=== PATIENT | male | born 1965 | race Caucasian/White ===

== ENCOUNTER 2019-12-30 07:28 | Emergency (ER) | payer OTHER, SELFPAY ==
[2019-12-30 07:34] VITALS: BP 130/78; PULSE 82; RESP 16; TEMP 36.1; O2SAT 98; BMI 30.4
--- NOTE | 2019-12-30 08:14 | ED.GENADULT ---
HPI - General Adult General Chief complaint: General Medical Stated complaint: RASH Time Seen by Provider: 12/30/19 07:58 Source: patient Mode of arrival: ambulatory Limitations: no limitations History of Present Illness HPI narrative: patient comes to emergency room complaining of genital rash. Patient states he has had itching and irritation for the last 3 weeks, he notice the vesicles approximately a week ago. Patient states that the vesicles continue to spread in the suprapubic region and over the penis. Patient denies penile discharge. No fever. No dysuria. Related Data Previous Rx's Medication Instructions Recorded acyclovir 400 mg PO TID #10 tab 12/30/19 Allergies Allergy/AdvReac Type Severity Reaction Status Date / Time No Known Allergies Allergy Verified 12/30/19 07:36 Review of Systems Review of Systems: Constitutional : No Weight loss, No Fever, No Chills, No Night Sweats, No Fatigue, No Malaise ENT/Mouth : No Hearing loss, No Ear Pain, No Nasal Congestion, No Sinus Pain, No Hoarseness, No sore throat, No Rhinorrhea, No Swallowing Difficulty Eyes: No Eye Pain, No Swelling, No Redness, No Foreign Body, No Discharge, No Vision Changes Cardiovascular : No Chest Pain, No SOB, No Dyspnea on Exertion, No Orthopnea, No Edema, No Palpitations Respiratory : No Cough, No Sputum, No Wheezing, No Smoke Exposure, No Dyspnea Gastrointestinal : No Nausea, No Vomiting, No Diarrhea, No Constipation, No abdominal Pain, No Hematochezia, No Melena Genitourinary : no irregular bleeding, No Dysuria, No Urinary Frequency, No Hematuria, No Urinary Incontinence, No Urgency, No Flank Pain, No Urinary Flow Changes, No Hesitancy Musculoskeletal : No joint pain, No Myalgias, No Joint Swelling Skin : Irritation, vesicular rash to suprapubic area and penis Neuro : No Weakness, No Numbness, No Paresthesias, No Loss of Consciousness, No Dizziness, No Headache Psych : No Anxiety/Panic, No Depression, No SI/HI/AH/VH, No Social Issues, Heme/Lymph: No Bruising, No Bleeding,No Lymphadenopathy Endocrine : No Polyuria, No Polydipsia, No Temperature Intolerance PMFSH Past Medical History Medical History No known health problems Social History Social History Advance Directives: No Advance Directives Information Provided: No Physical Exam Vital Signs: Vital Signs: Vital Signs Temp Pulse Resp BP Pulse Ox 12/30/19 07:34 97.0 F 82 16 130/78 98 Body Mass Index 30.4 Appearance: Alert. Oriented X3. No acute distress. Eyes: Pupils equal, round and reactive to light. ENT: Pharynx normal. Neck: Normal inspection. Neck supple. No lymph nodes noted. No crepitus CVS: Normal heart rate and rhythm. Pulses normal. Normal S1 and S2 Respiratory: No respiratory distress. Breath sounds normal. No Wheezing. No rales Abdomen: Soft and nontender. No rigidity. No distention. good BS x4 Skin: Skin warm and dry. vesicular rash to suprapubic area and penis Extremities: No lower extremity edema. No lower extremity edema. No Lacerations. No Rash Neuro: Oriented X 3. No motor deficit. No sensory deficit. Moving all extermities. No slurred speech. Course Course Course Narrative: I discussed with the patient that his physical exam is consistent with herpes. Instructed to inform his sexual partners. Discharge Plan Discharge Clinical Impression: Genital herpes in men Patient Disposition: Home, Self-Care Instructions: Genital Herpes Simplex (ED) Additional Instructions: Please follow-up with your primary care physician tomorrow. If you have any worsening or new symptoms, please return to the emergency room or call 911 Prescriptions: New acyclovir 400 mg tablet 400 mg PO TID Qty: 10 RF: 0
== END 2019-12-30 08:23 | disposition home or self-care (01) ==
PROVIDERS: Emergency Provider Emergency Medicine
DX: A60.01 Herpesviral infection of penis (principal)
CPT/HCPCS: 99282; 99283

== ENCOUNTER 2020-02-12 07:18 | Emergency (ER) | payer OTHER, SELFPAY ==
--- NOTE | 2020-02-12 07:40 | ED_ITS ---
HPI - Skin/Abscess/Foreign Bdy General Chief complaint: General Medical Stated complaint: rash on face Time Seen by Provider: 02/12/20 07:39 Source: patient Mode of arrival: ambulatory Limitations: no limitations History of Present Illness MD complaint: rash Onset (ago): week(s) (1) Location: face (bilateral nasolabial folds, upper eye lids bilaterally) Severity: mild Quality: pruritic Relieving factors: none Exacerbating factors: none Context: none Associated symptoms: denies other symptoms Treatments prior to arrival: OTC topical medication (bacitracin) Related Data Previous Rx's Medication Instructions Recorded acyclovir 400 mg PO TID #10 tab 12/30/19 mupirocin 1 appl TOPICAL BID 7 Days #15 g 02/12/20 prednisone 40 mg PO DAILY 5 Days #10 tab 02/12/20 Allergies Allergy/AdvReac Type Severity Reaction Status Date / Time No Known Allergies Allergy Verified 12/30/19 07:36 Review of Systems Review of Systems: Constitutional : No Fever, No Chills ENT/Mouth : No sore throat, No Rhinorrhea Eyes: No Eye Pain, No Swelling, No Redness Cardiovascular : No Chest Pain, No SOB Respiratory : No Cough, No Sputum Gastrointestinal : No Nausea, No Vomiting, No Diarrhea, No abdominal Pain Genitourinary : No Dysuria, No Hematuria Musculoskeletal : No joint pain, No Myalgias, No Joint Swelling Skin : No Skin Lesions, positive skin rash PMFSH Past Medical History Attestation statement: The following information was validated with the patient. Medical History No known health problems Social History Social History (Updated 02/12/20 @ 07:40 by Luz Maria Evans DO) Smoking Status: Never smoker Advance Directives: No Advance Directives Information Provided: Yes Physical Exam Vital Signs: Appearance: Alert. Oriented X3. No acute distress. Eyes: Pupils equal, round and reactive to light. ENT: Pharynx normal. Neck: Normal inspection. Neck supple. CVS: Normal heart rate and rhythm. Pulses normal. Respiratory: No respiratory distress. Breath sounds normal. Abdomen: Soft and nontender. Skin: Skin warm and dry. Normal skin color. Normal skin turgor. on bilateral nasolabial folds faintly erythematous shiny skin same patches noted on upper eye lids, no sweling, no elevation, pruritic per patient Extremities: No lower extremity edema. No calf ttp Neuro: Oriented X 3. No motor deficit. No sensory deficit. MDM - Skin/Abscess/Foreign Bdy MDM Narrative Medical decision making narrative: 54 yo male with rash on face x 1 week exam and history consistent with a contact dermatitis - it is pruritic in nature, does not know exposure at this time will need oral steroids and mupirocin no signs of cellulitis, no vesicles Discharge Plan Discharge Clinical Impression: Contact dermatitis Qualifiers: Contact dermatitis type: unspecified Contact dermatitis trigger: unspecified trigger Qualified Code(s): L25.9 - Unspecified contact dermatitis, unspecified cause Patient Disposition: Home, Self-Care Instructions: Contact Dermatitis (ED) Additional Instructions: return to ED for any worsening symptoms or concerns Prescriptions: New prednisone 20 mg tablet 40 mg PO DAILY 5 Days Qty: 10 RF: 0 mupirocin 2 % ointment 1 appl topical BID 7 Days Qty: 15 RF: 0 No Action acyclovir 400 mg tablet 400 mg PO TID Qty: 10 RF: 0 Referrals: [facility] [Primary Care Provider] - 2 days (if not better)
[2020-02-12 07:48] VITALS: BP 120/77; PULSE 91; RESP 16; TEMP 36.8; O2SAT 96; BMI 29.2
== END 2020-02-12 07:56 | disposition home or self-care (01) ==
PROVIDERS: Emergency Provider Emergency Medicine
DX: L25.9 Unspecified contact dermatitis, unspecified cause (principal)
CPT/HCPCS: 99283

== ENCOUNTER 2020-02-21 07:27 | Emergency (ER) | payer OTHER, SELFPAY ==
[2020-02-21 07:35] VITALS: BP 126/76; PULSE 90; RESP 18; TEMP 36.1; O2SAT 98; BMI 25.0
--- NOTE | 2020-02-21 07:55 | ED_ITS ---
HPI - Skin/Abscess/Foreign Bdy General Chief complaint: Skin/Abscess/Foreign Body Stated complaint: FACIAL SWELLING Time Seen by Provider: 02/21/20 07:55 Source: patient and old records reviewed Mode of arrival: ambulatory Limitations: no limitations History of Present Illness complaint: rash Onset (ago): week(s) (3+) Tetanus up to date: yes Location: face Severity: moderate Quality: burning Pain Consistency: constant Relieving factors: none Exacerbating factors: none Context: none Associated symptoms: denies other symptoms Treatments prior to arrival: other (was on mupirocin and prednisone without relief on 02/11) Related Data Previous Rx's Medication Instructions Recorded acyclovir 400 mg PO TID #10 tab 12/30/19 mupirocin 1 appl TOPICAL BID 7 Days #15 g 02/12/20 prednisone 40 mg PO DAILY 5 Days #10 tab 02/12/20 acyclovir 400 mg PO TID 10 Days #30 tab 02/21/20 cephalexin 500 mg PO TID 7 Days #21 cap 02/21/20 Allergies Allergy/AdvReac Type Severity Reaction Status Date / Time No Known Allergies Allergy Verified 12/30/19 07:36 Review of Systems Review of Systems: Constitutional : No Fever, No Chills ENT/Mouth : No sore throat, No Rhinorrhea Eyes: No Eye Pain, No Swelling, No Redness Cardiovascular : No Chest Pain, No SOB Respiratory : No Cough, No Sputum Gastrointestinal : No Nausea, No Vomiting, No Diarrhea, No abdominal Pain Genitourinary : No Dysuria, No Hematuria Musculoskeletal : No joint pain, No Myalgias, No Joint Swelling Skin : pos Skin Lesions, positive skin rash Neuro : No Weakness, No Numbness, No Headache Psych : No Anxiety, No Depression Heme/Lymph: No Bruising, No Bleeding,No Lymphadenopathy Endocrine : No Polyuria, No Polydipsia All other systems reviewed and are negative [facility] Past Medical History Attestation statement: The following information was validated with the patient. Medical History No known health problems Social History Social History Smoking Status: Never smoker Advance Directives: No Advance Directives Information Provided: Yes Physical Exam Vital Signs: Vital Signs: Last Vital Signs Temp 97.0 F 02/21/20 07:35 Pulse 90 02/21/20 07:35 Resp 18 02/21/20 07:35 BP 126/76 02/21/20 07:35 Pulse Ox 98 02/21/20 07:35 Body Mass Index 25.0 Appearance: Alert. Oriented X3. No acute distress. Eyes: Pupils equal, round and reactive to light. ENT: Pharynx normal. orolabial area there is erythema/scaling/no abscess but tiny vesicles very scattered noted Neck: Normal inspection. Neck supple. CVS: Normal heart rate and rhythm. Pulses normal. Respiratory: No respiratory distress. Breath sounds normal. Abdomen: Soft and nontender. Skin: Skin warm and dry. Normal skin color. Normal skin turgor. Extremities: No lower extremity edema. No calf ttp Neuro: Oriented X 3. No motor deficit. No sensory deficit. MDM - Skin/Abscess/Foreign Bdy MDM Narrative Medical decision making narrative: 54 yo male with orolabial red area with some vesicles mild cellulitis no systemic symptoms will start on cephalexin and acyclovir no nose involvement will refer to his PCP and certified neurodiagnostic technologist Discharge Plan Discharge Clinical Impression: Cellulitis Qualifiers: Site of cellulitis: face Qualified Code(s): L03.211 - Cellulitis of face Patient Disposition: Home, Self-Care Instructions: Cellulitis (ED) Additional Instructions: return to ED for any worsening symptoms or concerns you need to see your doctor and a certified neurodiagnostic technologist Prescriptions: New acyclovir 400 mg tablet 400 mg PO TID 10 Days Qty: 30 RF: 0 cephalexin 500 mg capsule 500 mg PO TID 7 Days Qty: 21 RF: 0 No Action acyclovir 400 mg tablet 400 mg PO TID Qty: 10 RF: 0 prednisone 20 mg tablet 40 mg PO DAILY 5 Days Qty: 10 RF: 0 mupirocin 2 % ointment 1 appl topical BID 7 Days Qty: 15 RF: 0 Referrals: Physician,Unknown [Primary Care Provider] - 2 days (call Sunday) Discharge Date/Time: 02/21/20 08:03
== END 2020-02-21 08:03 | disposition home or self-care (01) ==
PROVIDERS: Emergency Provider Emergency Medicine
DX: L03.211 Cellulitis of face (principal); Z79.899 Other long term (current) drug therapy
CPT/HCPCS: 99283

== ENCOUNTER → 2020-03-16 13:39 | Outpatient (BNVA) | payer OTHER, SELFPAY | PROVIDERS: PCP Nurse Practitioner Primary Care; Visit Provider Nurse Practitioner Family | DX: Z76.89 Persons encountering health services in other specified circumstances (principal) ==

== ENCOUNTER → 2020-05-27 13:37 | Outpatient (BNVA) | payer OTHER, SELFPAY | PROVIDERS: PCP Nurse Practitioner Primary Care; Visit Provider Nurse Practitioner Family | DX: Z13.89 Encounter for screening for other disorder (principal) | CPT/HCPCS: Q3014 ==

== ENCOUNTER 2022-04-24 22:18 | Emergency (ER) | payer OTHER, SELFPAY ==
--- NOTE | 2022-04-24 23:11 | ED.GENADULT ---
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 Patient attempt to put external nasal pressure and by the time I saw the patient in the room the bleeding was stopped. Patient declined headache, blurry vision, dizziness. Related Data Home Medications Medication Instructions Recorded Confirmed quetiapine 50 mg tablet (Seroquel) 50 mg PO BID 05/27/20 06/28/20 zolpidem 10 mg tablet (Ambien) 10 mg PO BEDTIME PRN Sleep 05/27/20 06/28/20 Previous Rx's Medication Instructions Recorded mupirocin 2 % topical ointment 1 appl topical BID 7 days #15 grams 02/12/20 acyclovir 400 mg tablet 400 mg PO TID 10 days #30 tabs 02/21/20 methylcellulose (laxative) 500 mg 500 mg PO DAILY #30 tabs 05/27/20 tablet (Citrucel) polyethylene glycol 3350 17 238 g PO ONCE #238 grams 05/27/20 gram/dose oral powder (Miralax) Allergies Allergy/AdvReac Type Severity Reaction Status Date / Time No Known Allergies Allergy Verified 06/28/20 11:27 Review of Systems Review of Systems: All other systems are reviewed and are negative Constitutional: Reports as per HPI and Reports no additional constitutional complaints Eyes: Reports as per HPI and Reports no additional eye complaints Reports system reviewed and no additional complaints, except as documented Cardiovascular: Reports as per HPI and Reports no additional cardiovascular complaints Respiratory: Reports as per HPI and Reports no additional respiratory complaints Gastrointestinal: Reports as per HPI and Reports no additional gastrointestinal complaints Genitourinary: Reports no additional female genitourinary complaints Musculoskeletal: Reports no additional musculoskeletal complaints Skin/Breast: Reports system reviewed and no additional complaints, except as docu Psychiatric: Reports no additional psychiatric complaints Endocrine: Reports no additional endocrine complaints Hematologic/Lymphatic: Reports no additional hematologic/lymphatic complaints Allergic/Immunologic: Reports no additional allergic/immunologic complaints Reports system reviewed and no additional complaints, except as documented and Reports Abnormal speech present [facility] Past Medical History Medical History Anxiety Depression Elevated cholesterol Headache Lymphoma Surgical History Hx of lymph node biopsy Family History Family History Mother Cancer Social History Social History Household Members: None Alcohol intake: current Alcohol intake frequency: does not drink Current occupational status: disabled Physical Exam ED Vital Signs: Vital signs have been reviewed as appeared to be correct. Blood pressure normal. Heart rate normal. Respiration rate normal. Temperature normal. Oxygen saturation normal. Appearance: Alert. Oriented X3. No acute distress. Head: Normal external exam. Normocephalic. Atraumatic. No North signs noted. No raccoon eyes noted Eyes: PERRLA. EOMI. Conjunctiva and sclera normal. Eyelids normal. ENT: TM's Normal. Pharynx normal. Uvula midline. Moist mucous membranes. No trismus noted. No drooling noted. No muffled voice noted. No active nose bleeding. Neck: Normal inspection. Neck supple. FROM. No adenopathy. Thyroid Normal. No meningeal signs. No neck mass noted. CVS: Normal heart rate and rhythm. Heart sound normal. No murmurs noted. Pulses normal throughout. Respiratory: No respiratory distress. Painless inspiration. Breath sounds normal. No wheezes/rales/rhonchi noted. Chest nontender. No accessory muscle usage noted or decreased air movement noted. Abdomen: Soft and nontender. Bowel sounds normal in all 4 quadrants. No distention noted. No organomegaly noted. No visible injury noted. Back: No CVA tenderness. Full range of motion noted. Skin: Skin warm and dry. Normal skin color. Normal skin turgor. No rashes/lesions/lacerations noted. Extremities: No lower extremity edema. Extremities exhibit normal range of motion. Extremities nontender. Neuro: Oriented X 3. Cranial nerve exam: II-XII are grossly intact No motor deficit. No sensory deficit. Reflexes normal. Course Course Course Narrative: Left nostril epistaxis that spontaneously stopped by applying external pressure on the nostril. Medical Decision Making Differential Diagnosis Differential Diagnoses: The differential diagnosis associated with the presentation includes (Epistaxis, coagulopathy, patent airway.) Discharge Plan Discharge Clinical Impression: Epistaxis Patient Disposition: Home, Self-Care Instructions: Nosebleed (ED) Prescriptions: No Action acyclovir 400 mg tablet 400 mg PO TID 10 Days Qty: 30 0RF mupirocin 2 % ointment 1 appl topical BID 7 Days Qty: 15 0RF quetiapine [Seroquel] 50 mg tablet 50 mg PO BID zolpidem [Ambien] 10 mg tablet 10 mg PO BEDTIME PRN (Reason: Sleep) polyethylene glycol 3350 [Miralax] 17 gram/dose powder 238 g PO ONCE Qty: 238 0RF Rx Instructions: As directed by gastroenterology department at [facility] Citrucel 500 mg tablet 500 mg PO DAILY Qty: 30 2RF
[2022-04-24 23:15] VITALS: BP 130/82; PULSE 97; RESP 14; TEMP 37; O2SAT 96; BMI 27.4
== END 2022-04-24 23:39 | disposition home or self-care (01) ==
LOC: HO.ED 23:29
PROVIDERS: Emergency Provider Emergency Medicine
DX: R04.0 Epistaxis (principal); Z79.899 Other long term (current) drug therapy
CPT/HCPCS: 99283

== ENCOUNTER 2023-11-14 09:18 | Outpatient (REF) | payer OTHER, SELFPAY ==
[2023-11-14 11:28] LABS: MANUAL DIFF FLAG NO
[2023-11-14 11:39] LABS: Basophils Absolute Auto 0.1 X10*3/uL (0.0-0.2); Basophils Percent Auto 1.2 % (0-2); Eosinophils Absolute Auto 0.4 X10*3/uL (0.0-0.4); Eosinophils Percent Auto 5.3 % (0-4); Hematocrit 39.6 % (42.0-52.0); Imm Gran Abs Auto 0.01 X10*3/uL (0.00-0.03); Imm Gran Pct Auto 0.2 % (0.0-0.4); Lymphocytes Absolute Auto 3.3 X10*3/uL (1.2-4.9); Lymphocytes Percent Auto 50.7 % (20-40); Mean Corpuscular HGB Conc 32.8 g/dl (31.0-36.0); Mean Corpuscular Hemoglobin 28.1 pg (27.0-33.0); Mean Corpuscular Volume 85.5 fL (80.0-98.0); Mean Platelet Volume 8.7 fL (9.4-12.4); Monocytes Absolute Auto 0.6 X10*3/uL (0.1-1.2); Monocytes Percent Auto 9.7 % (2-11); Neutrophils Absolute Auto 2.2 x10*3/uL (2.0-8.3); Neutrophils Percent Auto 32.9 % (45-73); Platelet Count 266 X10*3/uL (160-400); Red Blood Count 4.63 X10*6/uL (4.60-5.80); Red Cell Distribution Width 13.2 % (11.0-16.0); White Blood Count 6.6 X10*3/uL (4.8-10.8)
[2023-11-14 11:47] LABS: Estimated Average Glucose 123 mg/dL; Hemoglobin A1c % 5.9 % (<6.0)
[2023-11-14 12:03] LABS: Cholesterol 243 mg/dL (<200); HDL Cholesterol 32 mg/dL (>40); LDL Cholesterol Calculated 177 mg/dL (<100); Triglycerides 171 mg/dL (<150)
[2023-11-14 12:19] LABS: Prostate Specific Antigen 0.23 ng/mL (<0.05-4.0)
[2023-11-14 12:21] LABS: TSH reflex Free T4 5.57 uIU/mL (0.32-4.0)
[2023-11-14 13:16] LABS: Free T4 (Free Thyroxine) 0.89 ng/dL (0.71-1.85)
== END 2023-11-14 09:19 | disposition home or self-care (01) ==
LOC: HO.HHCL 09:18
PROVIDERS: Visit Provider Nurse Practitioner Primary Care
DX: Z85.72 Personal history of non-Hodgkin lymphomas (principal); R73.03 Prediabetes; E78.2 Mixed hyperlipidemia; R79.89 Other specified abnormal findings of blood chemistry; Z12.5 Encounter for screening for malignant neoplasm of prostate
CPT/HCPCS: 36415; 80061; 83036; 84153; 84439; 84443; 85025

== ENCOUNTER → 2023-12-27 08:43 | Outpatient (BNV) | payer OTHER, SELFPAY | PROVIDERS: PCP Nurse Practitioner Primary Care; Referring Provider Nurse Practitioner Primary Care; Visit Provider Internal Medicine | DX: Z85.72 Personal history of non-Hodgkin lymphomas (principal); D73.9 Disease of spleen, unspecified | CPT/HCPCS: 99204; 99213; G2211 ==

== ENCOUNTER 2024-01-08 13:42 | Outpatient (REF) | payer OTHER, SELFPAY ==
--- NOTE | ~2024-01-08 | CT_ITS ---
EXAMINATION: CT ABDOMEN AND PELVIS WITH CONTRAST CLINICAL INFORMATION: Left upper quadrant pain, swelling, history of malignant follicular lymphoma. COMPARISON: 07/04/2012, PET CT 03/17/2009. TECHNIQUE: Multidetector volumetric images were obtained from the superior aspect of the liver through the pubic symphysis following administration 85 mL of Omnipaque 350 intravenous contrast. Sagittal and coronal reformatted images were obtained on the technologist's workstation. Oral contrast: No This CT examination was performed using dose optimization techniques as appropriate, variously including the following: *Automated exposure control *Adjustment of mA and/or kV according to patient size (this includes techniques or standardized protocols for targeted exams where dose is matched to indication/reason for exam; i.e. extremities or head) *Use of iterative reconstruction technique DLP: 561 mGy-cm FINDINGS: LUNG BASES: Lung bases are clear bilaterally. -Heart size is normal. No effusions. -Mild diffuse thickening of the distal esophagus is noted suggesting esophagitis. LIVER, GALLBLADDER, AND BILIARY TREE: -Liver is significantly diffusely fatty infiltrated. There are a few foci of fatty sparing abutting the falciform ligament and gallbladder fossa. There are a few calcified granulomata. No suspicious focal lesion. Smooth contour. The gallbladder is unremarkable with no evidence of radiopaque gallstones, gallbladder wall thickening, or obvious pericholecystic inflammatory changes. PANCREAS: Unremarkable. SPLEEN: There is a 7 mm hypoattenuating round focus in the posterior inferior spleen (series 3, image 27). This was not present in 2013 . It is nonspecific. Spleen otherwise normal. No splenomegaly. ADRENAL GLANDS: Unremarkable. KIDNEYS AND URETERS: -There are tiny renal cysts bilaterally, subcentimeter. -The kidneys otherwise image normally without evidence of mass, hydronephrosis, or calculus. Normal nephrograms. -Collecting systems and ureters are normal in appearance. BLADDER: Unremarkable. GASTROINTESTINAL TRACT: -Mild thickening distal esophagus. -Stomach is somewhat decompressed. No gross abnormality. -Duodenum and small bowel are normal in course and caliber, without evidence of wall thickening or inflammation. -Normal appendix seen. -Colon is normal in course and caliber without evidence of inflammation or wall thickening. -Normal rectum. ABDOMINAL WALL: -No mass or significant hernia is present. Tiny fat-containing right inguinal and tiny fat-containing umbilical hernia. LYMPH NODES: There is no pathologic appearing lymphadenopathy detected. -There are a few scattered shotty right lower quadrant mesenteric lymph nodes and left upper mesenteric nodes. Previously seen angel disease with this the mesentery is no longer evident. VASCULAR: Unremarkable. PELVIC VISCERA: Unremarkable. OSSEOUS STRUCTURES: -No suspicious lytic or blastic focal bone lesion. -There is a 5 mm, grade 1 spondylolisthesis L5-S1. -There are changes of AVN of both femoral heads, however the articular surfaces remain intact without subchondral collapse. This was present in 2013. CT/CT abdomen pelvis w IV con IMPRESSION: 1. Diffuse fatty infiltration of the liver. 2. No evidence of abnormal abdominal or pelvic lymphadenopathy. Previously seen haziness of the central mesentery with numerous nodes has resolved. 3. Nonspecific 8 mm oval hypoattenuating inferoposterior splenic lesion. This was not present in 2013. Given history, consideration could be made for abdominal MRI for more definitive characterization. 4. 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 Electronically signed by: Demetrius Kessler MD 01/11/2024 04:33 PM [facility] [place]
[2024-01-08] MEDS: iohexoL 350 MG/ML 100 ML INFUS..BTL IV (15:07)
== END 2024-01-08 13:43 | disposition home or self-care (01) ==
LOC: HO.CT 13:42
PROVIDERS: PCP Nurse Practitioner Primary Care; Visit Provider Internal Medicine
DX: R10.9 Unspecified abdominal pain (principal)
CPT/HCPCS: 74177; Q9967

== ENCOUNTER → 2024-01-08 13:44 | Outpatient (BNV) | payer OTHER, SELFPAY | PROVIDERS: PCP Nurse Practitioner Primary Care; Visit Provider Radiology Diagnostic Radiology | DX: R10.12 Left upper quadrant pain (principal) | CPT/HCPCS: 74177 ==

== ENCOUNTER 2024-03-18 10:20 | Outpatient (AMB) | payer OTHER, SELFPAY ==
--- NOTE | 2024-03-18 10:31 | MHC.OFFVIS ---
Vital Signs 03/18/24 10:33 03/18/24 10:48 Height 5 ft 3 in Weight 179 lb 14.355 oz BMI 31.9 BP 79/50 L 80/52 L Blood Pressure Location Lt brachial Lt brachial Position Sitting Sitting Pulse 69 Intake Visit Reasons: Colonoscopy screening Intake Note: Patient in office for colonoscopy screening. CC: Patient reports seeing blood in stool about 2 weeks ago and having to strain sometimes to have a BM. Pt has never had a colonoscopy done before. House Calls Nurse Practitioner Required: Yes House Calls Nurse Practitioner Language: Wolof Accompanied by: Self / Same As Patient Allergies No Known Allergies Allergy (Verified 03/18/24 10:50) HPI HPI Colonoscopy screening: Details: 58-year-old male here for preprocedural meeting to discuss a screening colonoscopy. He is referred by [facility]. PMX Obesity-BMI of 33 History of non-Hodgkin's lymphoma History of polysubstance abuse High cholesterol Pre diabetes History of peptic ulcer disease Depression * SURGICAL HISTORY History of lymph node biopsy * ALLERGIES: NKDA * [employer] LABS: Laboratory Tests 11/14/23 12/27/23 09:19 09:31 WBC 5.3 Hgb 12.9 L Hct 38.0 L MCV 83.3 MCH 28.3 Plt Count 217 Estimated GFR > 60 Total Bilirubin 0.2 AST 35 ALT 51 H Alkaline Phosphatase 75 TSH 5.57 H Free T4 0.89 TODAY'S VISIT [employer] [facility] [employer] This is his first colonoscopy. He had a dx of PUD many, many years ago but no trouble with his stomach since, no bowel problems. He denies any cardiac or respiratory problems. No prior problems with anesthesia or sedation. No ID problems. There is no known FHX of crc or polyps. Breast ca in mother and sister PFSH Medical History History of peptic ulcer disease H/O lymphoma Polysubstance abuse Headache Elevated cholesterol Depression Anxiety Surgical History Hx of lymph node biopsy Family History Mother Cancer Breast cancer Sister Breast cancer Social History Household Members: None Alcohol intake: current Alcohol intake frequency: does not drink Patient Tobacco Use Status: Never used Tobacco service: No Current occupational status: disabled Gender identity: Male Review of Systems Const Denies fatigue, Denies fever(s), Denies night sweats, Denies poor appetite and Denies weight loss ENT Reports Normal hearing present, Denies dental pain, Denies dysphagia, Denies hearing loss, Denies mouth pain, Denies odynophagia, Denies throat swelling, Denies tongue swelling and Reports other (Dentition adequate) Card Reports no additional complaints Resp Reports no additional complaints GI Details: Denies abdominal pain, Denies melena, Denies bloating, Denies hematochezia, Denies constipation, Denies GI cramping, Denies dysphagia, Denies excessive flatus, Denies early satiety, Denies heartburn, Denies diarrhea, Denies nausea, Denies odynophagia, Denies vomiting and Denies hematemesis Skin/Breast Denies pruritus, Denies lesions, Denies rash and Denies jaundice Neuro Reports Normal hearing present and Denies Abnormal speech present Endo Denies fatigue Aller/Immun Denies throat swelling and Denies tongue swelling Physical Exam Vital Signs: BMI result Body Mass Index 31.9 Const General: cooperative, no acute distress, well developed and well groomed Nutritional Appearance: well nourished and obese Orientation/consciousness: oriented to person, oriented to place and oriented to time Limitations: language barrier HEENT Head: Yes normocephalic and Yes atraumatic Eyes General: appearance normal, both eyes and all related structures Pupils: Equal, round and reactive pupils present Neck Neck: Yes normal visual inspection and Yes no lymphadenopathy Thyroid: Thyroid normal Resp Effort & Inspection: normal respiratory effort and able to speak in complete sentences Auscultation: clear to auscultation bilaterally Cardio Rate: regular rate Rhythm: regular rhythm Heart sounds: Normal, physiologic split S2 sound present Peripheral pulses: radial pulses present and posterior tibial pulses present GI Inspection: No distended, No Abdominal panniculus present and Yes obesity Palpation (GI): Soft to palpation, nontender, no guarding, not rigid and No hepatosplenomegaly present Percussion: Yes normal to percussion Auscultation: normal bowel sounds Rectal Exam - Male: Yes deferred Skin General skin exam: no rashes or lesions noted, turgor normal, skin not dry, no jaundice, No spider nevi and no striae Rashes: no rashes Nails: normal Neuro General: oriented to person, oriented to place and oriented to time Cranial nerves: Yes Equal, round and reactive pupils present and Yes Normal hearing present Speech: No Abnormal speech present Extrem General: Yes normal to inspection, No clubbing, No cyanosis and No edema Psych Appearance: grossly normal and well kempt Mental Status: mental status grossly normal Speech and movement: Normal speech and movement present Affect: normal affect Attitude: cooperative Thought process: Normal thought process present and not confabulating Thought content: Normal thought content present Insight: Fair insight present (Psych) Judgement: Fair judgement present (Psych) Results Reviewed Results Reviewed: Laboratory Tests 11/14/23 12/27/23 09:19 09:31 WBC 5.3 Hgb 12.9 L Hct 38.0 L MCV 83.3 MCH 28.3 Plt Count 217 Estimated GFR > 60 Total Bilirubin 0.2 AST 35 ALT 51 H Alkaline Phosphatase 75 TSH 5.57 H Free T4 0.89 Assessment & Plan Assessment & Plan (1) Pre-op examination: Code(s): Z01.818 - Encounter for other preprocedural examination Category: Medical Plan [employer] [facility] [employer] This is his first colonoscopy. He had a dx of PUD many, many years ago but no trouble with his stomach since, no bowel problems. He denies any cardiac or respiratory problems. No prior problems with anesthesia or sedation. No ID problems. There is no known FHX of crc or polyps. Breast ca in mother and sister Orders: Orders Colonoscopy - GI Use Only Today Z01.818 - Encounter for other preprocedural examination Medications: New polyethylene glycol 3350 (Miralax) 238 grams PO ONCE 1 day 238 grams 0RF colonoscopy prep bisacodyl (Dulcolax (bisacodyl)) 10 mg (2 x 5 mg) PO BEDTIME 2 days 4 tabs 0RF Coding Level of Care Code New Pt Level 3 (18588) Diagnoses Pre-op examination Z01.818
[2024-03-18 10:33] VITALS: BP 79/50; PULSE 69; BMI 31.9
[2024-03-18 10:48] VITALS: BP 80/52
== END 2024-03-18 11:09 | disposition home or self-care (01) ==
PROVIDERS: PCP Nurse Practitioner Primary Care; Visit Provider Nurse Practitioner
DX: Z01.818 Encounter for other preprocedural examination (principal); Z12.11 Encounter for screening for malignant neoplasm of colon
CPT/HCPCS: 99024

== ENCOUNTER → 2024-03-18 10:20 | Outpatient (BNVA) | payer OTHER, SELFPAY | PROVIDERS: PCP Nurse Practitioner Primary Care; Visit Provider Nurse Practitioner | DX: Z01.818 Encounter for other preprocedural examination (principal) | CPT/HCPCS: 99212 ==